=== PATIENT | female | born 1970 | race Caucasian/White ===

== ENCOUNTER 2017-04-26 13:45 | Emergency (ER) | payer MEDICARE ==
[2017-04-26] MEDS ORDERED: Acetaminophen/HYDROcodone 325-5 MG Tab PO ONE (13:46)
[2017-04-26] MEDS ORDERED: Cyclobenzaprine 10 MG Tab PO ONE (13:46)
[2017-04-26 13:53] VITALS: BP 112/84
[2017-04-26] MEDS ORDERED: Take Home: Cyclobenzaprine 10 MG Tab, 4 Tab Pack PO ONE (14:07)
[2017-04-26] MEDS ORDERED: Take Home: Acetaminophen/HYDROcodone 325-5 MG, 2 Tab Pack PO ONE (14:07)
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
== END 2017-04-26 15:00 | disposition home or self-care (01) ==
LOC: CC.ED 13:45
DX: S16.1XXA Strain of muscle, fascia and tendon at neck level, initial encounter (principal); X58.XXXA Exposure to other specified factors, initial encounter
CPT/HCPCS: 72040; 99283; A9270

== ENCOUNTER 2017-07-08 22:00 | Emergency (ER) | payer MEDICARE, MEDICAID ==
[2017-07-08] MEDS ORDERED: Ondansetron 4 MG Tab.DIS PO ONE (22:01)
--- NOTE | 2017-07-08 22:12 | EDM.PDOC ---
ED HPI GENERAL MEDICAL PROBLEM - General Chief Complaint: Headache Stated Complaint: MIGRAINE Time Seen by Provider: 07/08/17 22:11 Source of Information: Reports: Patient - History of Present Illness INITIAL COMMENTS - FREE TEXT/NARRATIVE: Patient is a 46 year old female who presents to the ER with a migraine headache. She reports that she had a dull headache all day today but "after supper" she got a migraine and the pain became much more severe. Denies any LOC , dizziness, chest pain, shortness of breath, cough, or recent illness. She does report a history of migraine headaches and reports she has migraine medicine, but she is moving and the medicine is packed away somewhere she cannot find. She reports this medication is similar to headaches in the past. She does report she took some tramadol and clonazepam at home without relief. Does report she also tried a shot of whiskey to see if this would "knock her out." Reports nausea and emesis x5 since onset of migraine. Denies any numbness or tingling worse than her baseline from back and neck pain. Reports she has had increased stress in her life recently and her anxiety has been much worse. She feels very anxious in the ER. Does report she has psoriatic arthritis and experiences a lot of pain from this. Denies any illicit drug use. Does report she smokes ~ 1/2 ppd. Onset: Today Onset Date: 07/08/17 Onset Time: 20:00 Duration: Constant Location: Reports: Head Quality: Reports: Ache, Throbbing Severity: Severe Improves with: Reports: None Worsens with: Reports: Other (lights) Context: Reports: Activity Associated Symptoms: Reports: Headaches, Nausea/Vomiting. 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: NSAIDS, Other Medication(s) (clonazepam) Headache Pain Score (Numeric/FACES): 8 - Related Data Allergies Allergy/AdvReac Type Severity Reaction Status Date / Time No Known Allergies Allergy Verified 07/08/17 22:23 Home Meds: Home Meds Albuterol [Ventolin HFA] 2 puff INH Q4H PRN 04/26/17 [History] Albuterol/Ipratropium [DuoNeb 3.0-0.5 MG/3 ML] 3 ml NEB QID PRN 04/26/17 [ History] Celecoxib [CeleBREX] 200 mg PO DAILY 04/26/17 [History] ClonazePAM [KlonoPIN] 0.5 mg PO TID 04/26/17 [History] DULoxetine HCl [Cymbalta] 60 mg PO BID 04/26/17 [History] Folic Acid 1 mg PO DAILY 04/26/17 [History] Ibuprofen 200 mg PO Q6HR PRN 04/26/17 [History] Levonorgestrel [Mirena] 1 applic IUTERINE ASDIRECTED 04/26/17 [History] Methotrexate 8 tab PO WEEKLY 04/26/17 [History] Triamcinolone Acetonide [Triamcinolone Acetonide 0.1% Crm] 1 applic TOP BID 12/07 [History] traMADol [Ultram] 50 mg PO Q6H PRN 04/26/17 [History] SUMAtriptan [Imitrex] 50 mg PO ASDIRECTED PRN #15 tablet MDD 200mg/24hr [Rx] Past Medical History Cardiovascular History: Reports: High Cholesterol Neurological History: Reports: Migraines Psychiatric History: Reports: Anxiety, Depression Endocrine/Metabolic History: Reports: Other (See Below) Other Endocrine/Metabolic History: PSORIATIC ARTHRITIS Social & Family History - Tobacco Use Smoking Status *Q: Current Every Day Smoker Years of Tobacco use: 35 Packs/Tins Daily: 1 - Caffeine Use Caffeine Use: Reports: Soda - Recreational Drug Use Recreational Drug Use: Yes Recreational Drug Type: Reports: Marijuana/Hashish ED ROS GENERAL - Review of Systems Review Of Systems: See Below Constitutional: Reports: Decreased Appetite. Denies: Fever, Chills, Weakness, Fatigue HEENT: Denies: Sinus Problem, Vision Change Respiratory: Reports: No Symptoms Cardiovascular: Reports: No Symptoms. Denies: Lightheadedness, Syncope Endocrine: Reports: No Symptoms GI/Abdominal: Reports: Nausea, Vomiting. Denies: Abdominal Pain, Black Stool, Bloody Stool : Reports: Frequency Musculoskeletal: Reports: No Symptoms Skin: Reports: No Symptoms Neurological: Reports: Headache, Numbness (baseline), Tingling (baseline). Denies: Confusion, Dizziness, Paresthesia, Pre-Existing Deficit, Seizure, Syncope, Tremors, Trouble Speaking, Difficulty Walking, Weakness, Change in Speech, Gait Disturbance Psychiatric: Reports: Anxiety Hematologic/Lymphatic: Reports: No Symptoms Immunologic: Reports: No Symptoms - Physical Exam Exam: See Below Exam Limited By: No Limitations General Appearance: Alert, WD/WN, Anxious, Moderate Distress Eye Exam: Bilateral Eye: EOMI, Normal Fundi, Normal Inspection, PERRL Head Exam: Atraumatic, Normocephalic Neck: Normal Inspection, Supple, Non-Tender, Full Range of Motion Respiratory/Chest: No Respiratory Distress, Lungs Clear, Normal Breath Sounds, No Accessory Muscle Use, Chest Non-Tender Cardiovascular: Normal Peripheral Pulses, Regular Rate, Rhythm, No Edema, No Gallop, No JVD, No Murmur, No Rub GI/Abdominal: Normal Bowel Sounds, Soft, Non-Tender, No Organomegaly, No Distention, No Abnormal Bruit, No Mass Neuro Exam (Abbreviated): Alert, Oriented, CN II-XII Intact, Normal Cognition, Normal Gait, No Motor/Sensory Deficits Psychiatric: Anxious Course - Vital Signs Last Recorded V/S: Last Vital Signs Temp 96.7 F 07/08/17 22:09 Pulse 104 H 07/08/17 22:09 Resp 20 07/08/17 22:09 BP 123/85 07/08/17 22:09 Pulse Ox 96 07/08/17 22:09 - Orders/Labs/Meds Orders: Active Orders 24 hr Category Date Time Status Orphenadrine [Norflex] Med 07/08/17 22:30 Active 60 mg IM STAT Medication Orders Orphenadrine Citrate (Norflex) 60 mg IM STAT BOB Last Admin: 07/08/17 22:34 Dose: 60 mg Meds: Medications Generic Name Dose Route Start Last Admin Trade Name Freq PRN Reason Stop Dose Admin Orphenadrine Citrate 60 mg 07/08/17 22:30 07/08/17 22:34 Norflex IM 60 mg STAT BOB Administration Discontinued Medications Generic Name Dose Route Start Last Admin Trade Name Freq PRN Reason Stop Dose Admin Ketorolac Tromethamine 60 mg 07/08/17 22:17 07/08/17 22:31 Toradol IM 07/08/17 22:18 60 mg ONETIME ONE Administration Ondansetron HCl 1 packet 07/08/17 22:47 07/08/17 22:59 Take Home: Ondansetron Odt 4 Mg, 2 Tab Pack PO 07/08/17 22:48 1 packet ONETIME ONE Administration Promethazine HCl 12.5 mg 07/08/17 22:19 07/08/17 22:34 Phenergan IM 07/08/17 22:20 12.5 mg STAT ONE Administration - Re-Assessments/Exams Free Text/Narrative Re-Assessment/Exam: 07/08/17 22:46 Patient reports nausea has improved and pain is better. 07/08/17 23:04 Patient reports her pain has pretty much resolved. Does report a dull headache and her usual aches and pains of her neck and back. Departure - Departure Time of Disposition: 22:56 Disposition: Home, Self-Care 01 Condition: Good Clinical Impression: Migraine - Discharge Information Prescriptions: SUMAtriptan [Imitrex] 50 mg PO ASDIRECTED PRN #15 tablet MDD 200mg/24hr PRN Reason: Headache/Pain Instructions: Recurrent Migraine Headache, [id number] Forms: ED Department Discharge Additional Instructions: Take tramadol as needed for pain. Script send for imitrex. Take 1 tab at onset of headache. May repeat dose x1 if no resolution of headache. Return to ER for worsening of condition or new onset confusion, lethargy, facial droop, weakness of extremity. Push fluids to stay hydrated. Follow up with primary care provider for refill on medications. - My Orders Last 24 Hours: My Active Orders 07/08/17 22:30 Orphenadrine [Norflex] 60 mg IM STAT - Assessment/Plan Last 24 Hours: My Active Orders 07/08/17 22:30 Orphenadrine [Norflex] 60 mg IM STAT
[2017-07-08] MEDS ORDERED: Ketorolac 60 MG/2 ML SDV IM ONE (22:17)
[2017-07-08 22:18] VITALS: BP 123/85
[2017-07-08] MEDS ORDERED: Promethazine 25 MG/ML SDV IM ONE (22:19)
[2017-07-08] MEDS ORDERED: Take Home: Ondansetron 4 MG Tab.DIS, 2 Tab Pack PO ONE (22:47)
== END 2017-07-08 23:05 | disposition home or self-care (01) ==
LOC: CC.ED 22:00
DX: G43.909 Migraine, unspecified, not intractable, without status migrainosus (principal); E78.00 Pure hypercholesterolemia, unspecified; F32.9 Major depressive disorder, single episode, unspecified; F17.210 Nicotine dependence, cigarettes, uncomplicated; Z79.899 Other long term (current) drug therapy
CPT/HCPCS: 96372; 99283; A9270; J1885; J2360; J2550

== ENCOUNTER 2018-05-04 19:59 | Emergency (ER) | payer MEDICAID, MEDICARE ==
[2018-05-04] MEDS ORDERED: Clindamycin HCl 150 MG Cap PO ONE (20:00)
[2018-05-04] MEDS ORDERED: Acetaminophen/HYDROcodone 325-5 MG Tab PO ONE (20:00)
[2018-05-04] MEDS ORDERED: cefTRIAXone 1 GM Vial IM ONE (20:22)
[2018-05-04] MEDS ORDERED: Ketorolac 60 MG/2 ML SDV IM ONE (20:23)
[2018-05-04] MEDS ORDERED: Take Home: Clindamycin HCl 150 MG Cap, 6 Cap Pack PO ONE (20:23)
[2018-05-04] MEDS ORDERED: Take Home: Acetaminophen/HYDROcodone 325-5 MG, 2 Tab Pack PO ONE (20:28)
[2018-05-04] MEDS ORDERED: Lidocaine 1% 20 ML MDV INJECT ONE (20:29)
--- NOTE | 2018-05-04 20:35 | EDM.PDOC ---
ED HPI GENERAL MEDICAL PROBLEM - General Chief Complaint: General Stated Complaint: Swollen mouth Time Seen by Provider: 05/04/18 20:15 Source of Information: Reports: Patient History Limitations: Reports: No Limitations - History of Present Illness INITIAL COMMENTS - FREE TEXT/NARRATIVE: States that she started to have swelling to her lower jaw and her teeth started to hurt. Lower lip is swollen as well as chin. Area on the exterior chin is swollen and very tender. She does have a scabbed over area noted. she is constantly rubbing the area and has her fingers in her mouth and rubbing it. She states that she has not had any open or draining areas. She admits that she has had bad teeth for several years and hasn't been able to afford dentist. Has not had a fever. Onset: Gradual Location: Reports: Face Quality: Reports: Throbbing - Related Data Allergies Allergy/AdvReac Type Severity Reaction Status Date / Time No Known Allergies Allergy Verified 07/08/17 22:23 Home Meds: Home Meds Albuterol [Ventolin HFA] 2 puff INH Q4H PRN 04/26/17 [History] Albuterol/Ipratropium [DuoNeb 3.0-0.5 MG/3 ML] 3 ml NEB QID PRN 04/26/17 [ History] Celecoxib [CeleBREX] 200 mg PO DAILY 04/26/17 [History] ClonazePAM [KlonoPIN] 0.5 mg PO TID 04/26/17 [History] DULoxetine HCl [Cymbalta] 60 mg PO BID 04/26/17 [History] Folic Acid 1 mg PO DAILY 04/26/17 [History] Ibuprofen 200 mg PO Q6HR PRN 04/26/17 [History] Levonorgestrel [Mirena] 1 applic IUTERINE ASDIRECTED 04/26/17 [History] Methotrexate 8 tab PO WEEKLY 04/26/17 [History] Triamcinolone Acetonide [Triamcinolone Acetonide 0.1% Crm] 1 applic TOP BID 12/07 [History] traMADol [Ultram] 50 mg PO Q6H PRN 04/26/17 [History] SUMAtriptan [Imitrex] 50 mg PO ASDIRECTED PRN #15 tablet MDD 200mg/24hr [Rx] Past Medical History Cardiovascular History: Reports: High Cholesterol Respiratory History: Reports: Asthma Musculoskeletal History: Reports: Back Pain, Chronic, Neck Pain, Chronic Neurological History: Reports: Migraines Psychiatric History: Reports: Anxiety, Depression Endocrine/Metabolic History: Reports: Other (See Below) Other Endocrine/Metabolic History: PSORIATIC ARTHRITIS Social & Family History - Family History Family Medical History: Noncontributory - Caffeine Use Caffeine Use: Reports: Soda ED ROS GENERAL - Review of Systems Review Of Systems: See Below Constitutional: Denies: Fever, Chills HEENT: Reports: Dental Pain Respiratory: Reports: No Symptoms Cardiovascular: Reports: No Symptoms GI/Abdominal: Reports: No Symptoms Skin: Reports: Other (swelling to tight chin) ED EXAM, GENERAL - Physical Exam Exam: See Below Exam Limited By: No Limitations General Appearance: Alert, Moderate Distress Ears: Normal External Exam, Normal Canal, Normal TMs Nose: Normal Inspection Throat/Mouth: Normal Inspection, Other (teeth are broken and in bad repair on both the upper and lower area. Some swelling to the lower gum line on the right. ) Head: Atraumatic, Normocephalic Neck: Supple, Lymphadenopathy (R), Tender Lateral (on the right. No swelling on the left.) Respiratory/Chest: No Respiratory Distress, Lungs Clear, Normal Breath Sounds Cardiovascular: Regular Rate, Rhythm GI/Abdominal: Normal Bowel Sounds, Soft Skin Exam: Warm, Dry, Erythema (to the right chin. Area that is scabbed over without any drainage noted. Area is red, warm and tender to touch. ) Course - Orders/Labs/Meds Orders: Active Orders 24 hr Category Date Time Status Acetaminophen/HYDROcodone [Take Home: Acetaminophen/ Med 05/04/18 20:28 Once HYDROcod, 2 Tab Pack] 2 packet PO ONETIME ONE Lidocaine 1% [Xylocaine 1%] Med 05/04/18 20:29 Once 20 ml INJECT ONETIME ONE Medication Orders Hydrocodone Bitart/Acetaminophen (Take Home: Acetaminophen/Hydrocod, 2 Tab Pack ) 2 packet PO ONETIME ONE Stop: 05/04/18 20:29 Meds: Medications Generic Name Dose Route Start Last Admin Trade Name Freq PRN Reason Stop Dose Admin Hydrocodone Bitart/Acetaminophen 2 packet 05/04/18 20:28 Take Home: Acetaminophen/Hydrocod, 2 Tab Pack PO 05/04/18 20:29 ONETIME ONE Discontinued Medications Generic Name Dose Route Start Last Admin Trade Name Sarah PRN Reason Stop Dose Admin Ceftriaxone Sodium 1 gm 05/04/18 20:22 Rocephin IM 05/04/18 20:23 ONETIME ONE Clindamycin HCl 1 packet 05/04/18 20:23 Take Home: Clindamycin Hcl 150 Mg, 6 Cap Pack PO 05/04/18 20:24 ONETIME ONE Ketorolac Tromethamine 60 mg 05/04/18 20:23 Toradol IM 05/04/18 20:24 ONETIME ONE Departure - Departure Time of Disposition: 20:39 Disposition: Home, Self-Care 01 Condition: Good Clinical Impression: Tooth abscess Broken teeth Qualifiers: Encounter type: initial encounter Fracture type: closed Qualified Code(s): S02.5XXA - Fracture of tooth (traumatic), initial encounter for closed fracture - Discharge Information *PRESCRIPTION DRUG MONITORING PROGRAM REVIEWED*: Not Applicable *COPY OF PRESCRIPTION DRUG MONITORING REPORT IN PATIENT ANTONIETA: Not Applicable Instructions: Skin Abscess, [id number], Dental Abscess, [id number] Additional Instructions: warm packs to face for comfort Do not put fingers in mouth or on chin as that is what is spreading the infection make appt with dentist of choice Tylenol 650 mg and advil 400 mg every 4-6 hours for pain. Take these at the same time If the above do not work then take Roxana 1 tablet every 6 hours as needed - My Orders Last 24 Hours: My Active Orders 05/04/18 20:28 Acetaminophen/HYDROcodone [Take Home: Acetaminophen/HYDROcod, 2 Tab Pack] 2 packet PO ONETIME ONE 05/04/18 20:29 Lidocaine 1% [Xylocaine 1%] 20 ml INJECT ONETIME ONE - Assessment/Plan Last 24 Hours: My Active Orders 05/04/18 20:28 Acetaminophen/HYDROcodone [Take Home: Acetaminophen/HYDROcod, 2 Tab Pack] 2 packet PO ONETIME ONE 05/04/18 20:29 Lidocaine 1% [Xylocaine 1%] 20 ml INJECT ONETIME ONE
[2018-05-04 21:29] VITALS: BP 126/81
== END 2018-05-04 20:55 | disposition home or self-care (01) ==
LOC: CC.ED 19:59
DX: K04.7 Periapical abscess without sinus (principal); K03.81 Cracked tooth; Z79.899 Other long term (current) drug therapy
CPT/HCPCS: 96372; 99282; A9270-GY; J0696; J1885

== ENCOUNTER 2018-07-17 15:55 | Emergency (ER) | payer MEDICARE ==
[2018-07-17 16:04] VITALS: BP 112/72
[2018-07-17] MEDS ORDERED: Cephalexin 500 MG Cap PO ONE (16:38)
--- NOTE | 2018-07-17 16:52 | EDM.PDOC ---
ED HPI GENERAL MEDICAL PROBLEM - General Chief Complaint: Upper Extremity Injury/Pain Stated Complaint: swollen hand Time Seen by Provider: 07/17/18 16:20 Source of Information: Reports: Patient History Limitations: Reports: No Limitations - History of Present Illness INITIAL COMMENTS - FREE TEXT/NARRATIVE: Patient reports swelling of the LEFT hand x2 days. She denies any possible causative etiology including trauma, injury, fall, wound, or other insult. She report today she began to feel feverish and have the chills. She denies other concerns or complaints. Onset: Gradual Onset Date: 07/15/18 Duration: Constant, Getting Worse Location: Reports: Upper Extremity, Left Quality: Reports: Throbbing, Other (swelling) Severity: Moderate Improves with: Reports: None Worsens with: Reports: None Associated Symptoms: Reports: Fever/Chills Treatments CAR COUPLER: Reports: NSAIDS Left Hand Pain Score (Numeric/FACES): 6 - Related Data Allergies Allergy/AdvReac Type Severity Reaction Status Date / Time No Known Allergies Allergy Verified 07/17/18 15:55 Home Meds: Home Meds Albuterol [Ventolin HFA] 2 puff INH Q4H PRN 04/26/17 [History] Celecoxib [CeleBREX] 200 mg PO DAILY 04/26/17 [History] ClonazePAM [KlonoPIN] 0.5 mg PO TID 04/26/17 [History] DULoxetine HCl [Cymbalta] 120 mg PO DAILY 04/26/17 [History] Levonorgestrel [Mirena] 1 applic IUTERINE ASDIRECTED 04/26/17 [History] RX: Folic Acid 1 mg PO DAILY 04/26/17 [History] RX: Ibuprofen 200 mg PO Q6HR PRN 04/26/17 [History] Triamcinolone Acetonide [Triamcinolone Acetonide 0.1% Crm] 1 applic TOP BID 12/07 [History] traMADol [Ultram] 50 mg PO Q6H PRN 04/26/17 [History] SUMAtriptan [Imitrex] 50 mg PO ASDIRECTED PRN #15 tablet MDD 200mg/24hr [Rx] ARIPiprazole [Aripiprazole] 10 mg PO DAILY 07/17/18 [History] Adalimumab [Humira] 1 injection IM Q15D 07/17/18 [History] RX: Oxybutynin 5 mg PO DAILY 07/17/18 [History] RX: QUEtiapine Fumarate [Quetiapine Fumarate ER] 50 mg PO BEDTIME 07/17/18 [ History] RX: Simvastatin 20 mg PO BEDTIME 07/17/18 [History] Past Medical History Other HEENT History: Cleft palate surgery Cardiovascular History: Reports: High Cholesterol Respiratory History: Reports: Asthma Musculoskeletal History: Reports: Back Pain, Chronic, Neck Pain, Chronic Neurological History: Reports: Migraines Psychiatric History: Reports: Anxiety, Depression Endocrine/Metabolic History: Reports: Other (See Below) Other Endocrine/Metabolic History: PSORIATIC ARTHRITIS - Past Surgical History HEENT Surgical History: Reports: Oral Surgery Female Surgical History: Reports: Tubal Ligation Social & Family History - Family History Family Medical History: Noncontributory - Tobacco Use Smoking Status *Q: Current Every Day Smoker Years of Tobacco use: 36 Packs/Tins Daily: 1 - Caffeine Use Caffeine Use: Reports: Soda - Recreational Drug Use Recreational Drug Use: No Review of Systems - Review of Systems Review Of Systems: See Below Constitutional: Reports: Chills, Fever Respiratory: Denies: Shortness of Breath, Cough Cardiovascular: Denies: Chest Pain GI/Abdominal: Denies: Abdominal Pain, Diarrhea, Nausea, Vomiting Genitourinary: Denies: Dysuria Skin: Reports: Other (reports redness and swelling to LEFT hand) Neurological: Reports: No Symptoms ED EXAM, GENERAL - Physical Exam Exam: See Below Exam Limited By: No Limitations General Appearance: Alert, WD/WN, No Apparent Distress Respiratory/Chest: No Respiratory Distress Cardiovascular: Normal Peripheral Pulses, Regular Rate, Rhythm Peripheral Pulses: 2+: Radial (L), Radial (R) Extremities: Other (the dorsal aspect of the LEFT hand is swollen and red. it is TTP. cms intact throught the hand. no evidence of injury or trauma. MSK exam is otherwise without acute findings.) Neurological: Alert, Oriented Skin Exam: Warm, Dry, Intact, No Rash, Other (see MSK for further. skin exam otherwise without acute findings.) Course - Vital Signs Last Recorded V/S: Last Vital Signs Temp 37.0 C 07/17/18 16:01 Pulse 84 07/17/18 16:01 Resp 16 07/17/18 16:01 BP 112/72 07/17/18 16:01 Pulse Ox 98 11/25/18 16:01 - Orders/Labs/Meds Orders: Active Orders 24 hr Category Date Time Status Hand 2V Lt [CR] Stat Exams 07/17/18 16:09 Taken Meds: Medications Discontinued Medications Generic Name Dose Route Start Last Admin Trade Name Sarah PRN Reason Stop Dose Admin Cephalexin 500 mg 07/17/18 16:38 07/17/18 16:45 Keflex PO 07/17/18 16:39 500 mg STAT ONE Administration Departure - Departure Time of Disposition: 16:51 Disposition: Home, Self-Care 01 Condition: Good Clinical Impression: Cellulitis and abscess of hand - Discharge Information *PRESCRIPTION DRUG MONITORING PROGRAM REVIEWED*: Not Applicable *COPY OF PRESCRIPTION DRUG MONITORING REPORT IN PATIENT ANTONIETA: Not Applicable Instructions: Cellulitis, Adult Referrals: Diana Davidson PA [Primary Care Provider] - Forms: ED Department Discharge Additional Instructions: REST ELEVATE EXTREMITY ICE TO AREA MEDICATIONS PRESCRIBED KEFLEX 500MG ORALLY FOUR TIMES DAILY FOLLOW UP WITH PCP IN 3-5 DAYS RETURN TO ER IF WORSENING - My Orders Last 24 Hours: My Active Orders 07/17/18 16:09 Hand 2V Lt [CR] Stat - Assessment/Plan Last 24 Hours: My Active Orders 07/17/18 16:09 Hand 2V Lt [CR] Stat Assessment:: Cellulitis RX for PO cephalexin with 1st dose given in ER. Patient advised to rest, hydrate , OTC pain control PRN pain, take all Rx as directed, fu with PCP in 3-5 days, go to closest ER if change or worse. Patient reports understanding and agreement with plan. DC home stable in care of friend.
== END 2018-07-17 16:50 | disposition home or self-care (01) ==
LOC: CC.ED 15:55
DX: L03.114 Cellulitis of left upper limb (principal); L02.512 Cutaneous abscess of left hand; F17.210 Nicotine dependence, cigarettes, uncomplicated
CPT/HCPCS: 73120; 99283; A9270

== ENCOUNTER 2022-07-25 16:30 | Emergency (ER) | payer MEDICARE ==
[2022-07-25] MEDS ORDERED: Acetaminophen 500 MG Tab PO ONE (16:38)
[2022-07-25 16:41] VITALS: BP 116/76; PULSE 108
== END 2022-07-25 17:40 | disposition home or self-care (01) ==
LOC: CC.ED 16:30
DX: J06.9 Acute upper respiratory infection, unspecified (principal); E78.00 Pure hypercholesterolemia, unspecified; Z20.822 Contact with and (suspected) exposure to COVID-19
CPT/HCPCS: 87804; 99283; U0002

== ENCOUNTER 2022-07-27 09:25 | Emergency (ER) | payer MEDICARE ==
[2022-07-27 09:35] VITALS: BP 139/95; PULSE 117
[2022-07-27] MEDS ORDERED: Sodium Chloride 0.9% 10 ML Syringe FLUSH PRN (09:59)
[2022-07-27] MEDS ORDERED: Sodium Chloride 0.9% 1,000 ML IV ONE (10:00)
[2022-07-27] MEDS ORDERED: cefTRIAXone 1 GM Vial IVPUSH ONE (10:44)
[2022-07-27] MEDS ORDERED: Ketorolac 30 MG/ML SDV IVPUSH ONE (10:44)
[2022-07-27 10:54] LABS: AMPHETAMINES,URINE NEGATIVE (NEGATIVE); BARBITURATES,URINE NEGATIVE (NEGATIVE); BENZODIAZEPINE,URINE NEGATIVE (NEGATIVE); MDMA (ECSTASY), URINE NEGATIVE (NEGATIVE); METHADONE,URINE NEGATIVE (NEGATIVE); METHAMPHETAMINES,URINE NEGATIVE (NEGATIVE); OPIATES,URINE NEGATIVE (NEGATIVE); OXYCODONE,URINE NEGATIVE (NEGATIVE); PHENCYCLIDINE,URINE NEGATIVE (NEGATIVE); TCA,URINE POSITIVE (NEGATIVE)
[2022-07-27] MEDS ORDERED: Penicillin G Benzathine 1,200,000 Units/2 ML Syringe IM ONE (11:15)
[2022-07-27] MEDS ORDERED: Lactobacillus Rhamnosus GG (Probiotic) Cap PO SCH (11:15)
[2022-07-27] MEDS ORDERED: Fluconazole 100 MG Tab PO STA (11:16)
== END 2022-07-27 11:58 | disposition home or self-care (01) ==
LOC: CC.ED 09:25
DX: J02.0 Streptococcal pharyngitis (principal); L03.116 Cellulitis of left lower limb; L03.115 Cellulitis of right lower limb; B35.4 Tinea corporis; E78.00 Pure hypercholesterolemia, unspecified; F17.210 Nicotine dependence, cigarettes, uncomplicated; Z20.822 Contact with and (suspected) exposure to COVID-19
CPT/HCPCS: 36415; 80053; 80305-QW; 81003; 85025; 87430; 87804; 87807; 96361; 96372; 96374; 96375; 99283-25; 99284; A9270-GY; J0561; J0696; J1885; J7030; U0002